=== PATIENT | male | born 1990 | race Caucasian/White ===

== ENCOUNTER 2016-10-29 22:11 | Emergency (ER) | payer SELFPAY ==
[2016-10-29] MEDS ORDERED: PREDNISONE 20 MG TAB PO ONE ×2 (22:30→22:44)
[2016-10-29] MEDS ORDERED: AZITHROMYCIN 500 MG TABLET PO ONE (22:30)
--- NOTE | 2016-10-29 22:33 | Emergency Department Record ---
History of Present Illness - General Chief Complaint: Cough Stated Complaint: COUGHING WITH PAIN Time Seen by Provider: 10/29/16 22:16 Source: Patient Mode of Arrival: Ambulatory Limitations: No limitations - History of Present Illness Initial Comments: 26 yo male presents to ED with a 4-5 day history of non-productive cough symptoms. Patient denies fevers or chills, reports asthma as a child but is now only exercised induced. Patient was seen in Urgent Care earlier in the week and told that his symptoms were viral, no prescriptions were given at that time. MD Complaint: Cough Onset/Timin -: Days(s) Severity: Moderate Severity scale (1-10): 5 Consistency: Constant Improves With: Nothing Worsens With: Deep breaths Associated Symptoms: Denies other symptoms - Related Data Home Medications Medication Instructions Recorded Confirmed Last Taken Levothyroxine Sodium [Synthroid] 50 mcg PO DAILY 10/29/16 10/29/16 Unknown Prednisone [Prednisone 10Mg] 10 mg PO BID 10/29/16 10/29/16 Unknown Previous Rx's Medication Instructions Recorded Azithromycin [Zithromax] 250 mg PO DAILY #4 tab 10/29/16 Prednisone [Prednisone 20Mg] 20 mg PO TID #12 tab 10/29/16 Allergies Allergy/AdvReac Type Severity Reaction Status Date / Time Sulfa (Sulfonamide Allergy HIVES Verified 10/29/16 22:22 Antibiotics) Travel Screening - Travel/Exposure Within Last 30 Days Have you traveled within the last 30 days?: No Review of Systems Constitutional: Denies: Chills, Fever, Malaise, Night sweats Eyes: Denies: Eye discharge, Eye pain ENT: Denies: Congestion, Ear pain, Epistaxis Respiratory: Reports: Cough. Denies: Dyspnea Cardiovascular: Denies: Chest pain, Dyspnea on exertion Endocrine: Denies: Fatigue, Heat or cold intolerance Gastrointestinal: Denies: Abdominal pain, Nausea, Vomiting Genitourinary: Denies: Incontinence, Retention Musculoskeletal: Denies: Arthralgia, Back pain, Gout, Joint swelling Skin: Denies: Bruising, Change in color, Change in hair/nails Neurological: Denies: Abnormal gait, Confusion, Headache, Seizure Psychiatric: Denies: Anxiety, Auditory hallucinations Hematological/Lymphatic: Denies: Anemia, Blood Clots Past Medical History - SOCIAL HISTORY Smoking Status: Never smoker Alcohol Use: None Drug Use: None - RESPIRATORY Hx Respiratory Disorders: Yes Hx Asthma: Yes (hx) - CARDIOVASCULAR Hx Cardio Disorders: No - NEURO Hx Neuro Disorders: No - GI Hx GI Disorders: Yes Hx Diverticulitis: Yes (hx) Comment:: colitis - Hx Genitourinary Disorders: No - ENDOCRINE Hx Endocrine Disorders: Yes Hx Thyroid Disease: Yes (hypo) - MUSCULOSKELETAL Hx Musculoskeletal Disorders: No - PSYCH Hx Psych Problems: No - HEMATOLOGY/ONCOLOGY Hx Hematology/Oncology Disorders: No Family Medical History Any Significant Family History?: No Physical Exam - General General Appearance: Alert, Oriented x3, Cooperative, No acute distress Limitations: No limitations - Head Head exam: Atraumatic, Normocephalic, Normal inspection Head exam detail: negative: Abrasion, Contusion, Quintana's sign, General tenderness, Hematoma, Laceration - Eye Eye exam: Normal appearance. negative: Conjunctival injection, Periorbital swelling, Periorbital tenderness, Scleral icterus - ENT Ear exam: negative: Auricular hematoma, Auricular trauma Nasal Exam: negative: Active bleeding, Discharge, Dried blood, Foreign body Mouth exam: negative: Drooling, Laceration, Muffled voice, Tongue elevation - Neck Neck exam: Normal inspection. negative: Meningismus, Tenderness - Respiratory Respiratory exam: Normal lung sounds bilaterally. negative: Rales, Respiratory distress, Rhonchi, Stridor, Wheezes - Cardiovascular Cardiovascular Exam: Regular rate, Normal rhythm, Normal heart sounds - GI/Abdominal GI/Abdominal exam: Soft. negative: Rebound, Rigid, Tenderness - Rectal Rectal exam: Deferred - exam: Deferred - Extremities Extremities exam: Normal inspection. negative: Calf tenderness, Pedal edema, Tenderness - Back Back exam: Denies: CVA tenderness (R), CVA tenderness (L) - Neurological Neurological exam: Alert, Normal gait, Oriented X3 - Psychiatric Psychiatric exam: Normal affect, Normal mood - Skin Skin exam: Normal color. negative: Abrasion Type of lesion: negative: abrasion Course Vital Signs 10/29/16 22:19 Temperature 98.5 F Pulse Rate [ 83 Pulse Ox Probe] Respiratory 18 Rate Blood Pressure 157/96 [Left Arm] Pulse Ox 98 - Reevaluation(s) Reevaluation #1: 10/29/16 22:36 Patient is resting comfortably with normal vitals and clear lungs sounds, will prescribe Zithromax and Prednisone for his symptoms. Given normal lungs sound son examination, CXR is not felt to be of benefit at this time. Patient appears stable for discharge at this time. Disposition Disposition: Discharge Clinical Impression: Bronchitis Disposition: Home, Self-Care Condition: (2) Stable Instructions: Acute Bronchitis (ED) Additional Instructions: Return to ED if your symptoms worsen or if you have any concerns. Zithromax and Prednisone as directed. Follow-up with your family doctor in 3-5 days as directed. Prescriptions: Prednisone [Prednisone 20Mg] 20 mg PO TID #12 tab Azithromycin [Zithromax] 250 mg PO DAILY #4 tab Forms: Patient Portal Access Time of Disposition: 22:33
== END 2016-10-29 22:50 | disposition home or self-care (01) ==
LOC: ER 22:11
DX: J20.9 Acute bronchitis, unspecified (principal)
CPT/HCPCS: 99282; J7512

== ENCOUNTER 2017-06-10 13:17 | Day surgery (SDC) | payer MEDICAID ==
[2017-06-10] MEDS ORDERED: LIDOCAINE 2% MDV (20MG/ML) 20ML VIAL IV ONE (13:18)
[2017-06-10] MEDS ORDERED: FENTANYL PF 100MCG/2ML VIAL IV ONE (13:18)
--- NOTE | 2017-06-11 07:59 | ULTRASOUND REPORT ---
EXAM: ULTRASOUND OF THE ABDOMEN HISTORY: ELEVATED LFT'S. TECHNIQUE: Complete transabdominal ultrasound of the abdomen was obtained. Comparison: CT from 04/08/17. FINDINGS: The liver is homogeneous in echotexture without focal lesion. No gallstones or gallbladder wall thickening. The CBD measures 2.5 mm. The visualized pancreas is unremarkable. The spleen is enlarged at 14.6 cm. The right kidney measures 10 x 6 cm and the left kidney measures 10 x 5 cm. No renal calculus, mass, or hydronephrosis. The visualized abdominal aorta and inferior vena cava are unremarkable. No free fluid. IMPRESSION: THE SPLEEN IS ENLARGED AT 14 CM. OTHERWISE, UNREMARKABLE EXAMINATION. JOB NUMBER: [id number] MTDD
--- NOTE | 2017-06-11 12:40 | Operative Note ---
DATE OF SURGERY: 06/10/2017 REFERRING PROVIDER: BETY Pearson PREOPERATIVE DIAGNOSIS: Colitis. POSTOPERATIVE DIAGNOSIS: Includes pancolitis, suspect ulcerative colitis. Rule out occult C difficile colitis. OPERATION: COLONOSCOPY with right and left colon biopsies and photos, and stool aspirate. PROCEDURE: After informed consent was obtained, the patient was placed in the left lateral decubitus position in the endoscopy suite, sedated and monitored by the Department of Anesthesia. Digital rectal exam was unremarkable. A well-lubricated CF-160AL colonoscope was inserted into the rectum and advanced to the cecum and then into the terminal ilium. There were granular changes of moderate severity throughout the length of the colon. There was noted to be a normal-appearing distal terminal ilium. The preparation quality was good. Random biopsies were obtained from the right and left colon. No polyps or pseudopolyps were seen. J-turn views in the rectum were not performed given the inflammation and concern over trauma. Again, random biopsies were obtained from right and left colon. Also, stool was aspirated to rule out the possibility of occult C difficile infection, particularly given the history. RECOMMENDATIONS: Will await results of stool aspirate and biopsies, but at this point believe the patient will need to be on a biologic. Will continue to take steps to obtain authorization to start Remicade. In addition, will check an abdominal ultrasound given his elevated liver chemistries. At this point, I suspect they may be fatty liver induced, which is certainly exacerbated by his chronic use of prednisone. As always, thank you for allowing me to participate in the health care of your patients. CC: BETY Pearson
== END 2017-06-10 15:15 | disposition home or self-care (01) ==
LOC: HOP 13:17
PROVIDERS: ATTEND Internal Medicine Gastroenterology
DX: K52.9 Noninfective gastroenteritis and colitis, unspecified (principal); K51.90 Ulcerative colitis, unspecified, without complications; K51.00 Ulcerative (chronic) pancolitis without complications; B96.7 Clostridium perfringens [C. perfringens] as the cause of diseases classified elsewhere; R94.5 Abnormal results of liver function studies
CPT/HCPCS: 45380; 00810; 76700; J3010

== ENCOUNTER 2017-11-05 02:41 | Emergency (ER) | payer MEDICAID ==
[2017-11-05] MEDS ORDERED: LIDOCAINE 5% PATCH TOP ONE (02:59)
--- NOTE | 2017-11-05 03:05 | Emergency Department Record ---
History of Present Illness - General Chief complaint: Pain Stated complaint: RIB PAIN Time Seen by Provider: 11/05/17 02:59 Source: Patient Mode of Arrival: Ambulatory Limitations: No limitations - History of Present Illness Initial comments: 27 yo male presents to ED for evaluation of right rib pain. Patient reports that he coughed approximately 2 hours ago, reports feeling a "pop" and right sided rib pain. Patient denies taking anything for pain prior to arrival, denies health problems at his baseline. MD Complaint: Other (chest wall pain) Onset/Timin -: Hour(s) Location: Right History of Same: No Quality: Aching Consistency: Constant Improves with: Nothing Worsens with: Nothing Associated Symptoms: Denies other symptoms - Related Data Home Medications Medication Instructions Recorded Confirmed Last Taken Fidaxomicin [Dificid] 200 mg PO BID 11/05/17 11/05/17 11/04/17 Prednisone [Prednisone 5Mg] 5 mg PO TID 11/05/17 11/05/17 Unknown Previous Rx's Medication Instructions Recorded Lidocaine Patch [Lidoderm] 1 each TOP Q12HR PRN #15 patch 11/05/17 Allergies Allergy/AdvReac Type Severity Reaction Status Date / Time Sulfa (Sulfonamide Allergy HIVES Verified 11/05/17 03:14 Antibiotics) Travel Screening - Travel/Exposure Within Last 30 Days Have you traveled within the last 30 days?: No - Travel Symptoms Symptom Screening: None Review of Systems Constitutional: Denies: Chills, Fever, Malaise, Night sweats Eyes: Denies: Eye discharge, Eye pain ENT: Denies: Congestion, Ear pain, Epistaxis Respiratory: Denies: Cough, Dyspnea Cardiovascular: Reports: Chest pain. Denies: Dyspnea on exertion, Edema, Palpitations Endocrine: Denies: Fatigue, Heat or cold intolerance Gastrointestinal: Denies: Abdominal pain, Nausea, Vomiting Genitourinary: Denies: Incontinence, Retention Musculoskeletal: Denies: Arthralgia, Back pain, Gout, Joint swelling Skin: Denies: Bruising, Change in color Neurological: Denies: Abnormal gait, Confusion, Headache, Seizure Psychiatric: Denies: Anxiety Hematological/Lymphatic: Denies: Anemia, Blood Clots Past Medical History - SOCIAL HISTORY Smoking Status: Never smoker Alcohol Use: None Drug Use: None - RESPIRATORY Hx Respiratory Disorders: Yes Hx Asthma: Yes (exercise induced) - CARDIOVASCULAR Hx Cardio Disorders: No - NEURO Hx Neuro Disorders: No - GI Hx GI Disorders: Yes Hx Abdominal Pain: Yes (intermittent) Hx Diverticulitis: Yes (hx) Hx of Polyps: Yes Comment:: ulcerative colitis - Hx Genitourinary Disorders: Yes Hx Kidney Stones: Yes - ENDOCRINE Hx Endocrine Disorders: Yes Hx Thyroid Disease: Yes (hypo) - MUSCULOSKELETAL Hx Musculoskeletal Disorders: No - PSYCH Hx Psych Problems: No - HEMATOLOGY/ONCOLOGY Hx Hematology/Oncology Disorders: Yes Hx Anemia: Yes Hx Blood Transfusions: Yes Hx Blood Transfusion Reaction: No Family Medical History Any Significant Family History?: Yes Hx Cancer: Grandparents *Cancer Comment: MGF-lung Hx Diabetes: Grandparents *Diabetes Comment: MGM, PGF Hx Heart Disease: Grandparents *Heart Comment: MGM Physical Exam - General General Appearance: Alert, Oriented x3, Cooperative, Mild distress Limitations: No limitations - Head Head exam: Atraumatic, Normocephalic, Normal inspection Head exam detail: negative: Abrasion, Contusion, Quintana's sign, General tenderness, Hematoma, Laceration - Eye Eye exam: Normal appearance. negative: Conjunctival injection, Periorbital swelling, Periorbital tenderness, Scleral icterus - ENT Ear exam: negative: Auricular hematoma, Auricular trauma Nasal Exam: negative: Active bleeding, Discharge, Dried blood, Foreign body Mouth exam: negative: Drooling, Laceration, Muffled voice, Tongue elevation - Neck Neck exam: Normal inspection. negative: Meningismus, Tenderness - Respiratory Respiratory exam: Normal lung sounds bilaterally, Chest wall tenderness (Right lower ribs). negative: Rales, Respiratory distress, Rhonchi - Cardiovascular Cardiovascular Exam: Regular rate, Normal rhythm, Normal heart sounds - GI/Abdominal GI/Abdominal exam: Soft. negative: Rebound, Rigid, Tenderness - Rectal Rectal exam: Deferred - exam: Deferred - Extremities Extremities exam: Normal inspection. negative: Calf tenderness, Pedal edema, Tenderness - Back Back exam: Denies: CVA tenderness (R), CVA tenderness (L) - Neurological Neurological exam: Alert, Normal gait, Oriented X3 - Psychiatric Psychiatric exam: Normal affect, Normal mood - Skin Skin exam: Normal color. negative: Abrasion Type of lesion: negative: abrasion Course Vital Signs 11/05/17 02:47 Temperature 98.3 F Pulse Rate [ 95 H Pulse Ox Probe] Respiratory 24 Rate Blood Pressure 147/102 [Left Arm] Pulse Ox 98 - Reevaluation(s) Reevaluation #1: 11/05/17 03:18 CXR: No acute process Patient and his family were updated on his xray results, appears stable for discharge with continued symptomatic care of his chest wall strain. Disposition Disposition: Discharge Clinical Impression: Chest wall pain Disposition: Home, Self-Care Condition: (2) Stable Instructions: Chest Pain (ED) Additional Instructions: Return to ED if your symptoms worsen or if you have any concerns. Lidoderm patches as directed. Follow-up with your family doctor in 3-5 days as directed. Prescriptions: Lidocaine Patch [Lidoderm] 1 each TOP Q12HR PRN #15 patch PRN Reason: Pain - Moderate (5-7) Forms: Patient Portal Access Time of Disposition: 03:19 Quality - Quality Measures Quality Measures: N/A - Blood Pressure Screening Does Patient Have Any of the Following: No Blood Pressure Classification: Hypertensive Reading Systolic Measurement: 147 Diastolic Measurement: 102 Screening for High Blood Pressure: < First Hypertensive BP, F/U Documented > [ G8950] First Hypertensive Follow-up Interventions: Referral to alternative/primary care provider.
--- NOTE | 2017-11-05 10:52 | RADIOLOGY REPORT ---
EXAM: CHEST, TWO VIEWS HISTORY: DIFFICULTY IN BREATHING. TECHNIQUE: Frontal and lateral views of the chest were performed. FINDINGS: The heart size is normal. The lung escamilla are clear. The osseous structures are normal. IMPRESSION: NEGATIVE CHEST EXAMINATION. JOB NUMBER: [id number] MTDD
== END 2017-11-05 03:24 | disposition home or self-care (01) ==
LOC: ER 02:41
DX: R07.89 Other chest pain (principal); R06.00 Dyspnea, unspecified
CPT/HCPCS: 71046; 99283

== ENCOUNTER 2018-05-10 18:27 | Observation (INO) | payer MEDICAID ==
[2018-05-10] MEDS ORDERED: ONDANSETRON HCL IV 4 MG/2 ML VIAL IVP ONE (18:37)
[2018-05-10] MEDS ORDERED: HYOSCYAMINE SULFATE ODT 0.125 MG TAB.SUBL SL ONE (18:37)
--- NOTE | 2018-05-10 18:41 | Emergency Department Record ---
History of Present Illness - General Chief complaint: Nausea, Vomiting, Diarrhea Stated complaint: VOMITING,DIARRHEA Time Seen by Provider: 05/10/18 18:37 Source: Patient Mode of Arrival: Ambulatory Limitations: No limitations - History of Present Illness Initial comments: 28 yo male presents to ED for evaluation of nausea, vomiting, and loose stools for the past 48 hours. Patient reports similar symptoms previously related to C. Diff in 2014 as well as a history of ulcerative colitis. Patient is s/p fecal transplant for recurrent c. diff as well. Patient denies abdominal pain symptoms but does report "cramping". Patient denies previous abdominal surgery. MD complaint: Diarrhea, Nausea, Vomiting Onset/Timin -: Days(s) Associated Abdominal Pain: No Severity: Moderate Quality: Cramping Consistency: Constant Improves with: None Worsens with: None Associated Symptoms: Fever/chills, Nausea/vomiting, Weakness - Related Data Allergies Allergy/AdvReac Type Severity Reaction Status Date / Time Sulfa (Sulfonamide Allergy HIVES Verified 05/10/18 18:38 Antibiotics) Travel Screening - Travel/Exposure Within Last 30 Days Have you traveled within the last 30 days?: No Review of Systems Constitutional: Reports: Fever. Denies: Chills, Malaise, Night sweats Eyes: Denies: Eye discharge, Eye pain ENT: Denies: Congestion, Ear pain, Epistaxis Respiratory: Denies: Cough, Dyspnea Cardiovascular: Denies: Chest pain, Dyspnea on exertion Endocrine: Reports: Fatigue. Denies: Heat or cold intolerance Gastrointestinal: Reports: Diarrhea, Nausea, Vomiting. Denies: Abdominal pain Genitourinary: Denies: Incontinence, Retention Musculoskeletal: Denies: Arthralgia, Back pain, Gout, Joint swelling Skin: Denies: Bruising, Change in color, Change in hair/nails Neurological: Denies: Abnormal gait, Confusion, Headache, Seizure Psychiatric: Denies: Anxiety Hematological/Lymphatic: Denies: Anemia, Blood Clots Past Medical History - SOCIAL HISTORY Smoking Status: Never smoker Drug Use: None - RESPIRATORY Hx Respiratory Disorders: Yes Hx Asthma: Yes (exercise induced) - CARDIOVASCULAR Hx Cardio Disorders: No - NEURO Hx Neuro Disorders: No - GI Hx GI Disorders: Yes Hx Abdominal Pain: Yes (intermittent) Hx Diverticulitis: Yes (hx) Hx of Polyps: Yes Comment:: ulcerative colitis - Hx Genitourinary Disorders: Yes Hx Kidney Stones: Yes - ENDOCRINE Hx Endocrine Disorders: Yes Hx Thyroid Disease: Yes (hypo) - MUSCULOSKELETAL Hx Musculoskeletal Disorders: No - PSYCH Hx Psych Problems: No - HEMATOLOGY/ONCOLOGY Hx Hematology/Oncology Disorders: Yes Hx Anemia: Yes Hx Blood Transfusions: Yes Hx Blood Transfusion Reaction: No Family Medical History Hx Cancer: Grandparents *Cancer Comment: MGF-lung Hx Diabetes: Grandparents *Diabetes Comment: MGM, PGF Hx Heart Disease: Grandparents *Heart Comment: MGM Physical Exam - General General Appearance: Alert, Oriented x3, Cooperative, Mild distress Limitations: No limitations - Head Head exam: Atraumatic, Normocephalic, Normal inspection Head exam detail: negative: Abrasion, Contusion, Quintana's sign, General tenderness, Hematoma, Laceration - Eye Eye exam: Normal appearance. negative: Conjunctival injection, Periorbital swelling, Periorbital tenderness, Scleral icterus - ENT Ear exam: negative: Auricular hematoma, Auricular trauma Nasal Exam: negative: Active bleeding, Discharge, Dried blood, Foreign body Mouth exam: negative: Drooling, Laceration, Muffled voice, Tongue elevation - Neck Neck exam: Normal inspection. negative: Meningismus, Tenderness - Respiratory Respiratory exam: Normal lung sounds bilaterally. negative: Rales, Respiratory distress, Rhonchi, Stridor - Cardiovascular Cardiovascular Exam: Regular rate, Normal rhythm, Normal heart sounds - GI/Abdominal GI/Abdominal exam: Soft, Tenderness (Mild, diffuse pain on examination.). negative: Rebound, Rigid - Rectal Rectal exam: Deferred - exam: Deferred - Extremities Extremities exam: Normal inspection. negative: Calf tenderness, Pedal edema, Tenderness - Back Back exam: Denies: CVA tenderness (R), CVA tenderness (L) - Neurological Neurological exam: Alert, Normal gait, Oriented X3 - Psychiatric Psychiatric exam: Normal affect, Normal mood - Skin Skin exam: Normal color. negative: Abrasion Type of lesion: negative: abrasion Course - Reevaluation(s) Reevaluation #1: 05/10/18 19:11 Laboratory studies were reviewed and are grossly unremarkable for an acute process except for: WBC 10.9 AST 157 ALT 202 Alk phos 189 BUN 11/Creatinine 2.0 CO2 20 AG 22. Reevaluation #2: 05/10/18 19:20 CT imaging ordered to exclude colitis, 2nd L NS ordered to infuse as well. Reevaluation #3: 05/10/18 20:23 CT Abdomen/Pelvis: No definite acute intra-abdominal process Fatty infiltration of the colon marcum unchanged from 2017 imaging Mild splenomegaly Healing right 10th rib fracture Patient was updated on results thus far, C. Diff toxin pending. Reevaluation #4: 05/10/18 21:01 EKG: Sinus tachycardia 134 Normal axis, normal intervals Minor ST-changes I 2nd Liter has completed infusion however heart rate continues to be 130's. Will admit for ARF and likely resulting tachycardia with continued IVF resuscitation. Reevaluation #5: 05/10/18 21:08 Message left for Lissette Kumar NP for admission. 05/10/18 21:40 Case was discussed with Lissette Marques, will accept admission at this time. Medical Decision Making - Lab Data Result diagrams: 05/10/18 18:45 05/10/18 18:45 Disposition Disposition: Admit Clinical Impression: Nausea vomiting and diarrhea, Tachycardia ARF (acute renal failure) Qualifiers: Acute renal failure type: unspecified Qualified Code(s): N17.9 - Acute kidney failure, unspecified Disposition: Still a Patient at [facility] Decision to Admit: Admit from ER Decision to Admit Date: 05/10/18 Decision to Admit Time: 21:03 Condition: (2) Stable Forms: Patient Portal Access Time of Disposition: 21:03 Quality - Quality Measures Quality Measures: N/A - Blood Pressure Screening Does Patient Have Any of the Following: No Blood Pressure Classification: Hypertensive Reading Systolic Measurement: 117 Diastolic Measurement: 91 Screening for High Blood Pressure: < First Hypertensive BP, F/U Documented > [ G8950] First Hypertensive Follow-up Interventions: Referral to alternative/primary care provider.
[2018-05-10] MEDS ORDERED: 0.9 % SODIUM CHLORIDE 1000ML 1,000 ML IV SCH ×2 (18:45→19:30)
[2018-05-10 18:54] LABS: BASO % 0.5 % (0-6); EOS % 0.3 % (0-6); GRAN % 67.8 % (47-80); HEMATOCRIT 52.6 % (42.0-52.0); HEMOGLOBIN 17.1 gm/dl (14.0-18.0); LYMPH % 17.7 % (16-45); MEAN CELL VOLUME 75.1 fl (81-97); MEAN CORPUSCULAR HEMOGLOBIN 24.4 pg (27-33); MEAN CORPUSCULAR HGB CONC 32.5 g/dl (32-36); MONO % 13.7 % (0-9); PLATELET COUNT 464 K/uL (130-400); RED CELL DISTRIBUTION WIDTH 17.4 % (11.5-14.5); WHITE BLOOD COUNT W/O DIFF 10.9 K/uL (4.2-12.2)
[2018-05-10] MEDS ORDERED: METOCLOPRAMIDE HCL 10 MG/2 ML VIAL IVP ONE (18:58)
[2018-05-10] MEDS ORDERED: DIPHENHYDRAMINE HCL 50 MG/ML VIAL IVP ONE (18:58)
[2018-05-10 19:03] LABS: BILIRUBIN,TOTAL 0.6 mg/dL (0.2-1.0)
[2018-05-10 19:08] LABS: ALB/GLOB RATIO 1.3 (1.1-1.8); ALBUMIN 5.1 g/dL (4.0-5.0)
[2018-05-10] MEDS: 0.9 % SODIUM CHLORIDE 1000ML 1,000 ML IV PRN (21:20)
[2018-05-10] MEDS ORDERED: PREDNISONE 5 MG TAB PO SCH (22:09)
[2018-05-10] MEDS ORDERED: ONDANSETRON HCL IV 4 MG/2 ML VIAL IVP PRN (22:09)
[2018-05-10] MEDS ORDERED: 0.9 % SODIUM CHLORIDE 1000ML 1,000 ML IV PRN (22:09)
[2018-05-10] MEDS: ACETAMINOPHEN 500 MG TABLET PO PRN (22:41)
[2018-05-10] MEDS: PREDNISONE 1 MG TABLET PO SCH (22:42)
[2018-05-10] MEDS: HYOSCYAMINE SULFATE ODT 0.125 MG TAB.SUBL SL PRN (23:56)
[2018-05-11] MEDS: ACETAMINOPHEN 500 MG TABLET PO PRN ×2 (04:07→11:58)
[2018-05-11] MEDS: 0.9 % SODIUM CHLORIDE 1000ML 1,000 ML IV PRN (05:20)
[2018-05-11 05:40] LABS: URINE APPEARANCE CLEAR; URINE BILIRUBIN SMALL (NEGATIVE); URINE BLOOD NEGATIVE (NEGATIVE); URINE COLOR YELLOW; URINE GLUCOSE (UA) NEGATIVE (NEGATIVE); URINE KETONE TRACE (NEGATIVE); URINE LEUKOCYTE ESTERASE NEGATIVE (NEGATIVE); URINE NITRITE NEGATIVE (NEGATIVE); URINE PROTEIN TRACE (NEGATIVE); URINE UROBILINOGEN 0.2 E.U./dL (0.20 - 1.00)
[2018-05-11 05:55] LABS: URINE BACTERIA FEW; URINE EPITHELIAL CELLS NONE SEEN (FEW); URINE HYALINE CAST 0 - 5 /lpf; URINE MUCUS MODERATE; URINE RBC 0 - 2 (NONE SEEN)
[2018-05-11] MEDS ORDERED: LEVOTHYROXINE SODIUM 50 MCG TABLET PO SCH (07:00)
[2018-05-11] MEDS: PREDNISONE 1 MG TABLET PO SCH (09:34)
[2018-05-11] MEDS: HYOSCYAMINE SULFATE ODT 0.125 MG TAB.SUBL SL PRN (09:34)
--- NOTE | 2018-05-11 09:38 | History & Physical ---
History of Present Illness - Date of Service Date of Service for History & Physical: 05/11/18 - History of Present Illness Admitting Diagnosis: Dehydration. ARF. Nause/vomiting/diarrhea. Tachycardia History of Present Illness: HPI: Patient is a 28 y/o male with history of ulcerative colitis who was admitted from the ED following 48 hour history of nausea, vomiting and loose stools. 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 Patient denies travel or sick contacts and has received his influenza vaccination. Patient has been unable to eat solid food since onset of nausea and vomiting, but is able to hold down liquids. ED Course: Patient presented to the ED 05/10/18. ED course was as follows: Initial laboratory studies were reviewed in ED and unremarkable for an acute process except for: WBC 10.9 AST 157 ALT 202 Alk phos 189 BUN 11/Creatinine 2.0 CO2 [address] imaging ordered to exclude colitis. Non-contrast CT Abdomen/Pelvis showed: No definite acute intra-abdominal process Fatty infiltration of the colon marcum unchanged from 2017 imaging Mild splenomegaly Healing right 10th rib fracture C. Diff toxin negative. 2 L of NS ordered to infuse . EKG: Sinus tachycardia 134 Normal axis, normal intervals Minor ST-changes I Recommended admission for ARF and likely resulting tachycardia with continued IVF resuscitation. Case was discussed with Lissette Marques NP, will accept admission at this time. PMH: Patient history significant for ulcerative colitis and infective colitis. He is followed by GI. He receives prednisone for UC and fecal transplant for infective colitis. Patient continues to experience nausea, abdominal cramping and diarrhea, but has not vomited since admission. He has been able to hold down liquids and has not eaten solids since admission. Patient continues to be tachycardic despite continuous IVF resuscitation. Travel Screening - Travel/Exposure Within Last 30 Days Have you traveled within the last 30 days?: No - Travel/Exposure Within Last Year Have you traveled outside the [place] in the last year?: No - Additonal Travel Details Have you been exposed to anyone with a communicable illness?: No - Travel Symptoms Symptom Screening: Fever (Subjective), Headache, Diarrhea, Vomiting Review of Systems Reviewed: No additional complaints except as noted below Constitutional: Reports: Fever. Denies: Chills, Malaise, Night sweats Eyes: Denies: Eye discharge, Eye pain ENT: Denies: Congestion, Ear pain, Epistaxis Respiratory: Denies: Cough, Dyspnea Cardiovascular: Denies: Chest pain, Dyspnea on exertion Endocrine: Reports: Fatigue. Denies: Heat or cold intolerance Gastrointestinal: Reports: Abdominal pain, Diarrhea, Nausea, Vomiting Genitourinary: Denies: Incontinence, Retention Musculoskeletal: Denies: Arthralgia, Back pain, Gout, Joint swelling Skin: Denies: Bruising, Change in color, Change in hair/nails Neurological: Denies: Abnormal gait, Confusion, Headache, Seizure Psychiatric: Denies: Anxiety Hematological/Lymphatic: Denies: Anemia, Blood Clots Past Medical History - SOCIAL HISTORY Smoking Status: Never smoker Alcohol Use: None Drug Use: None - RESPIRATORY Hx Respiratory Disorders: Yes Hx Asthma: Yes (exercise induced) - CARDIOVASCULAR Hx Cardio Disorders: No - NEURO Hx Neuro Disorders: No - GI Hx GI Disorders: Yes Hx Abdominal Pain: Yes (intermittent) Hx Diverticulitis: Yes (hx) Hx of Polyps: Yes Comment:: ulcerative colitis - Hx Genitourinary Disorders: Yes Hx Kidney Stones: Yes - ENDOCRINE Hx Endocrine Disorders: Yes Hx Thyroid Disease: Yes (hypo) - MUSCULOSKELETAL Hx Musculoskeletal Disorders: No - PSYCH Hx Psych Problems: No - HEMATOLOGY/ONCOLOGY Hx Hematology/Oncology Disorders: Yes Hx Anemia: Yes Hx Blood Transfusions: Yes Hx Blood Transfusion Reaction: No Family Medical History Any Significant Family History?: Yes Hx Cancer: Grandparents *Cancer Comment: MGF-lung Hx Diabetes: Grandparents *Diabetes Comment: MGM, PGF Hx Heart Disease: Grandparents *Heart Comment: MGM H&P Meds/Allergies - Allergies Allergies: Allergies Allergy/AdvReac Type Severity Reaction Status Date / Time Sulfa (Sulfonamide Allergy HIVES Verified 05/10/18 18:38 Antibiotics) - Active Medications Active Medications: Current Medications Acetaminophen (Tylenol 500mg Tab) 1,000 mg PO Q6H PRN PRN Reason: FEVER GT 101/HEADACHE Last Admin: 05/11/18 04:07 Dose: 1,000 mg Hyoscyamine (Levsin Odt) 0.25 mg SL Q4H PRN PRN Reason: ABDOMINAL PAIN Last Admin: 05/10/18 23:56 Dose: 0.25 mg Sodium Chloride () 1,000 mls @ 125 mls/hr IV .Q8H PRN PRN Reason: LARGE VOLUME IV Last Admin: 05/11/18 05:20 Dose: 125 mls/hr Levothyroxine Sodium (Synthroid) 50 mcg PO DAILYTHY [facility] Last Admin: 05/11/18 06:35 Dose: 50 mcg Ondansetron HCl (Zofran) 4 mg IVP Q6H PRN PRN Reason: NAUSEA Prednisone (Prednisone 1mg) 2 mg PO TID [facility] Last Admin: 05/10/18 22:42 Dose: 2 mg Physical Exam - Vital Signs Vital Signs: Vital Signs - Last 24 Hrs Temp Pulse Pulse Pulse Resp BP BP 05/11/18 02:00 98.4 F 98 H 05/10/18 21:45 101.3 F H 150 H 19 144/94 05/10/18 21:30 136 H 12 114/79 05/10/18 20:11 140 H 16 117/73 05/10/18 19:10 127 H 05/10/18 18:35 98.8 F 144 H 24 117/91 Pulse Ox 05/11/18 02:00 05/10/18 21:45 99 05/10/18 21:30 94 L 05/10/18 20:11 93 L 05/10/18 19:10 100 05/10/18 18:35 99 - General General Appearance: Alert, Oriented x3, Cooperative, No acute distress Limitations: No limitations - Head Head exam: Atraumatic, Normocephalic, Normal inspection Head exam detail: negative: Abrasion, Contusion, Quintana's sign, General tenderness, Hematoma, Laceration - Eye Eye exam: Normal appearance. negative: Conjunctival injection, Periorbital swelling, Periorbital tenderness, Scleral icterus - ENT ENT exam: Mucous membranes moist Ear exam: negative: Auricular hematoma, Auricular trauma Nasal Exam: negative: Active bleeding, Discharge, Dried blood, Foreign body Mouth exam: Normal external inspection. negative: Drooling, Laceration, Muffled voice, Tongue elevation - Neck Neck exam: Normal inspection. negative: Meningismus, Tenderness - Respiratory Respiratory exam: Normal lung sounds bilaterally. negative: Rales, Respiratory distress, Rhonchi, Stridor - Cardiovascular Cardiovascular Exam: Normal rhythm, Normal heart sounds, Tachycardia Peripheral Pulses: 2+: Radial (R), Radial (L), Dorsalis Pedis (R), Dorsalis Pedis (L) - GI/Abdominal GI/Abdominal exam: Soft, Hyperactive bowel sounds, Tenderness (Mild, diffuse pain on examination.). negative: Rebound, Rigid - Rectal Rectal exam: Deferred - exam: Deferred - Extremities Extremities exam: Normal inspection. negative: Calf tenderness, Pedal edema, Tenderness - Back Back exam: Denies: CVA tenderness (R), CVA tenderness (L) - Neurological Neurological exam: Alert, Normal gait, Oriented X3 - Psychiatric Psychiatric exam: Normal affect, Normal mood - Skin Skin exam: Normal color. negative: Abrasion Type of lesion: negative: abrasion Results - Labs Result Diagrams: 05/10/18 18:45 05/10/18 18:45 Labs Last 24 Hours: Laboratory Results - last 24 hr 05/10/18 05/10/18 05/10/18 18:45 18:45 19:20 WBC 10.9 RBC 7.00 H Hgb 17.1 Hct 52.6 H MCV 75.1 L MCH 24.4 L MCHC 32.5 RDW 17.4 H Plt Count 464 H MPV 11.0 H Gran % 67.8 Lymphocytes % 17.7 Monocytes % 13.7 H Eosinophils % 0.3 Basophils % 0.5 Sodium 137 Potassium 3.6 Chloride 95 L Carbon Dioxide 20.0 L Anion Gap 22.0 H BUN 11 Creatinine 2.0 H Estimated GFR 42 Random Glucose 114 H Calcium 10.0 Total Bilirubin 0.60 AST 157 H ALT 202 H Alkaline Phosphatase 189 H Total Protein 9.0 H Albumin 5.1 H Globulin 3.9 Albumin/Globulin Ratio 1.3 Lipase 32 Urine Color Urine Appearance Urine pH Ur Specific Thompson Urine Protein Urine Glucose (UA) Urine Ketones Urine Blood Urine Nitrite Urine Bilirubin Urine Urobilinogen Ur Leukocyte Esterase Urine RBC Urine WBC Ur Epithelial Cells Urine Bacteria Hyaline Casts Urine Mucus C. difficile Ag & Toxin Not detected 05/11/18 05:30 WBC RBC Hgb Hct MCV MCH MCHC RDW Plt Count MPV Gran % Lymphocytes % Monocytes % Eosinophils % Basophils % Sodium Potassium Chloride Carbon Dioxide Anion Gap BUN Creatinine Estimated GFR Random Glucose Calcium Total Bilirubin AST ALT Alkaline Phosphatase Total Protein Albumin Globulin Albumin/Globulin Ratio Lipase Urine Color Yellow Urine Appearance Clear Urine pH 6.0 Ur Specific Thompson >= 1.030 Urine Protein Trace H Urine Glucose (UA) Negative Urine Ketones Trace H Urine Blood Negative Urine Nitrite Negative Urine Bilirubin Small H Urine Urobilinogen 0.2 Ur Leukocyte Esterase Negative Urine RBC 0 - 2 Urine WBC 6 - 10 Ur Epithelial Cells None seen Urine Bacteria Few Hyaline Casts 0 - 5 Urine Mucus Moderate C. difficile Ag & Toxin VTE H&P Assessment - Risk for VTE Risk for VTE: No Risk Level: Low Risk Assessment Date: 05/11/18 Risk Assessment Time: 10:36 VTE Orders Placed or Will Be Placed: No VTE Reason for No Prophylaxis: Not Indicated (Patient ambulating frequently in room) Plan - Detailed Diagnosis and Plan (1) Nausea vomiting and diarrhea Current Visit: Yes Status: Acute Base Code: R11.2 - NAUSEA WITH VOMITING, UNSPECIFIED; R19.7 - DIARRHEA, UNSPECIFIED Comment: 05/11/18 Patient admitted for 48 hours nausea, vomiting and diarrhea -NS at 125 per hr -clear liquid diet -Zofran PRN -C. Diff cultures neg -Immodium PRN for diarrhea (2) Acute kidney injury Current Visit: Yes Status: Acute Base Code: N17.9 - ACUTE KIDNEY FAILURE, UNSPECIFIED Comment: 05/11/18 BUN 11, Cr 2, GFR 42 upon admission -likely secondary to dehydration -continue with IV hydration -advance diet as tolerated -repeat BMP pending (3) Tachycardia Current Visit: Yes Status: Acute Base Code: R00.0 - TACHYCARDIA, UNSPECIFIED Comment: 05/11/18 Patient has been tachycardic with heart rate of 120-130 since admission -rehydrated with 2 L NS bolus in ED -continue IV hydration -chronic tachycardia present in previous medical records -cardiology consult pending -continuous cardiac monitoring (4) Ulcerative colitis Current Visit: Yes Status: Acute Base Code: K51.90 - ULCERATIVE COLITIS, UNSPECIFIED, WITHOUT COMPLICATIONS Comment: 05/11/18 Patient has extensive UC history followed by Dr. Olmedo -Prednisone daily -Infliximab infusion once weekly -patient has chronic diarrhea with 4-6 bowel movements daily on current treatment regimen (5) DVT prophylaxis Current Visit: Yes Status: Acute Base Code: [id number] - Comment: 05/11/18 Patient is low risk due to age and frequent mobility in room -encourage frequent ambulation (6) Full code status Current Visit: Yes Status: Acute Base Code: Z78.9 - OTHER SPECIFIED HEALTH STATUS Comment: 05/11/18 Patient is full code status this admission
[2018-05-11] MEDS ORDERED: LOPERAMIDE 2 MG CAPSULE PO PRN (10:31)
[2018-05-11 10:52] LABS: HEMATOCRIT 45.5 % (42.0-52.0); HEMOGLOBIN 14.3 gm/dl (14.0-18.0); MEAN CELL VOLUME 76.6 fl (81-97); MEAN CORPUSCULAR HGB CONC 31.4 g/dl (32-36); PLATELET COUNT 286 K/uL (130-400); RED BLOOD COUNT 5.94 M/uL (4.40-5.70); RED CELL DISTRIBUTION WIDTH 15.5 % (11.5-14.5); WHITE BLOOD COUNT W/O DIFF 6.4 K/uL (4.2-12.2)
[2018-05-11 11:25] LABS: PLATELET ESTIMATE NORMAL (NORMAL)
[2018-05-11 11:29] LABS: ALB/GLOB RATIO 1.2 (1.1-1.8); ALBUMIN 3.9 g/dL (4.0-5.0); ALKALINE PHOSPHATASE 128 U/L (40-129); ALT/SGPT 168 U/L (<41); AST/SGOT 117 U/L (10.0-50.0); BLOOD UREA NITROGEN 9 mg/dL (6-20); EST GLOMERULAR FILTRATION RATE > 60 mL/min; GLUCOSE,RANDOM 103 mg/dL (74-109); TOTAL PROTEIN 7.1 g/dL (6.6-8.7)
[2018-05-11] MEDS ORDERED: POTASSIUM CHL 20MEQ IN 1L NS 20 MEQ/1,000 ML BAG IV ONE (11:34)
--- NOTE | 2018-05-11 16:43 | Discharge Summary ---
Providers Discharge Summary Date: 05/11/18 Date of admission: 05/10/18 21:38 Expected Date of Discharge: 05/11/18 Attending physician: KACEY SHORT Primary care physician: Lissette Marques N.P. Consults: Consult Orders 05/11/18 10:30 Consult - Cardiology NOW Consulting Provider: JESSICA FARIAS Physician Instructions: Reason For Exam: chronic tachycardia Does pt have current medical staffing coordinator?: Not Established Physical Exam - Vital Signs Vital Signs: Vital Signs - Last 24 Hrs Temp Pulse Pulse Pulse Resp BP BP 05/11/18 10:35 97.8 F 155/114 05/11/18 09:15 97.8 F 115 H 18 155/114 05/11/18 09:00 20 05/11/18 02:00 98.4 F 98 H 05/10/18 21:45 101.3 F H 150 H 19 144/94 05/10/18 21:30 136 H 12 114/79 05/10/18 20:11 140 H 16 117/73 05/10/18 19:10 127 H 05/10/18 18:35 98.8 F 144 H 24 117/91 Pulse Ox 05/11/18 10:35 05/11/18 09:15 98 05/11/18 09:00 05/11/18 02:00 05/10/18 21:45 99 05/10/18 21:30 94 L 05/10/18 20:11 93 L 05/10/18 19:10 100 05/10/18 18:35 99 - General General Appearance: Alert, Oriented x3, Cooperative, No acute distress Limitations: No limitations - Head Head exam: Atraumatic, Normocephalic, Normal inspection Head exam detail: negative: Abrasion, Contusion, Quintana's sign, General tenderness, Hematoma, Laceration - Eye Eye exam: Normal appearance. negative: Conjunctival injection, Periorbital swelling, Periorbital tenderness, Scleral icterus - ENT ENT exam: Mucous membranes moist Ear exam: negative: Auricular hematoma, Auricular trauma Nasal Exam: negative: Active bleeding, Discharge, Dried blood, Foreign body Mouth exam: Normal external inspection. negative: Drooling, Laceration, Muffled voice, Tongue elevation - Neck Neck exam: Normal inspection. negative: Meningismus, Tenderness - Respiratory Respiratory exam: Normal lung sounds bilaterally. negative: Rales, Respiratory distress, Rhonchi, Stridor - Cardiovascular Cardiovascular Exam: Normal rhythm, Normal heart sounds, Tachycardia Peripheral Pulses: 2+: Radial (R), Radial (L), Dorsalis Pedis (R), Dorsalis Pedis (L) - GI/Abdominal GI/Abdominal exam: Soft, Hyperactive bowel sounds, Tenderness (Mild, diffuse pain on examination.). negative: Rebound, Rigid - Rectal Rectal exam: Deferred - exam: Deferred - Extremities Extremities exam: Normal inspection. negative: Calf tenderness, Pedal edema, Tenderness - Back Back exam: Denies: CVA tenderness (R), CVA tenderness (L) - Neurological Neurological exam: Alert, Normal gait, Oriented X3 - Psychiatric Psychiatric exam: Normal affect, Normal mood - Skin Skin exam: Normal color. negative: Abrasion Type of lesion: negative: abrasion Hospitalization - Hospitalization Admission Diagnosis: Dehydration. ARF. Nause/vomiting/diarrhea. Tachycardia - Problem List/Discharge Diagnosis (1) Nausea vomiting and diarrhea Status: Acute Base Code: R11.2 - NAUSEA WITH VOMITING, UNSPECIFIED; R19.7 - DIARRHEA, UNSPECIFIED Comment: 05/11/18: Patient admitted for 48 hours of nausea, vomiting and diarrhea. No vomiting since admission, nausea controlled with zofran, diarrhea has slowed down. -NS at 125 per hr with 20mEq K due to K of 3.0. -tolerating clear liquid diet, will continue to advance as tolerated -Zofran PRN -C. Diff cultures neg -Immodium PRN for diarrhea (2) Acute kidney injury Status: Acute Base Code: N17.9 - ACUTE KIDNEY FAILURE, UNSPECIFIED Comment: 05/11/18 BUN 11, Cr 2, GFR 42 upon admission -Resolved with BUN 9, Cr 1.0, GFR> 60 -likely secondary to dehydration -advance diet as tolerated -Good urine output (3) Tachycardia Status: Acute Base Code: R00.0 - TACHYCARDIA, UNSPECIFIED Comment: 05/11/18 Patient has been tachycardic with heart rate of 120-130 since admission -rehydrated with 2 L NS bolus in ED -continued IV hydration -chronic tachycardia present in previous medical records -cardiology consult with Dr. Farias, TSH WNL, ECHO ordered, will follow-up outpatient. No further treatment at this time -continuous cardiac monitoring (4) Ulcerative colitis Status: Acute Base Code: K51.90 - ULCERATIVE COLITIS, UNSPECIFIED, WITHOUT COMPLICATIONS Comment: 05/11/18 Patient has extensive UC history followed by Dr. Olmedo -Prednisone daily -Infliximab infusion once weekly -patient has chronic diarrhea with 4-6 bowel movements daily on current treatment regimen (5) DVT prophylaxis Status: Acute Base Code: [id number] - Comment: 05/11/18 Patient is low risk due to age and frequent mobility in room -encourage frequent ambulation -No prophylaxis needed upon discharge (6) Full code status Status: Acute Base Code: Z78.9 - OTHER SPECIFIED HEALTH STATUS Comment: Patient is full code status this admission - Hospitalization Course Disposition: Home, Self-Care Hospital Course: HPI: Patient is a 28 y/o male with history of ulcerative colitis who was admitted from the ED following 48 hour history of nausea, vomiting and loose stools. 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 Patient denies travel or sick contacts and has received his influenza vaccination. Patient has been unable to eat solid food since onset of nausea and vomiting, but is able to hold down liquids. ED Course: Patient presented to the ED 05/10/18. ED course was as follows: Initial laboratory studies were reviewed in ED and unremarkable for an acute process except for: WBC 10.9 AST 157 ALT 202 Alk phos 189 BUN 11/Creatinine 2.0 CO2 [address] imaging ordered to exclude colitis. Non-contrast CT Abdomen/Pelvis showed: No definite acute intra-abdominal process Fatty infiltration of the colon marcum unchanged from 2017 imaging Mild splenomegaly Healing right 10th rib fracture C. Diff toxin negative. 2 L of NS ordered to infuse . EKG: Sinus tachycardia 134 Normal axis, normal intervals Minor ST-changes I Recommended admission for ARF and likely resulting tachycardia with continued IVF resuscitation. Case was discussed with Lissette Marques NP, will accept admission at this time. PMH: Patient history significant for ulcerative colitis and infective colitis. He is followed by GI. He receives prednisone for UC and fecal transplant for infective colitis. Patient continues to experience nausea, abdominal cramping and diarrhea, but has not vomited since admission. He has been able to hold down liquids and has not eaten solids since admission. Patient continues to be tachycardic despite continuous IVF resuscitation. UPDATE: patient has been tolerating oral diet. Nausea well-controlled with prn zofran, diarrhea has slowed in frequency. Abdominal pain improving as well. Dr. Farias consulted, checked TSH and would like ECHO completed outpatient. No further treatment at this time. HR as been 90-130s this admission. Patient has improved and ready to dc home, YOSSI has resolved, adequate urine output. Patient to slowly advance diet as tolerated and follow-up with me in 2 weeks. Continue to follow-up with GI as scheduled for continued infusions and further UC treatment. Procedures: Imaging and X-Rays 05/10/18 19:12 ABDOMEN/PELVIS WO CONTRAST [CT] Stat Cardiology Procedures 05/10/18 20:50 EKG NOW 05/11/18 12:46 Echocardiogram 2D - Limited NOW Abnormal Labs: Abnormal Lab Results 05/10/18 05/10/18 05/11/18 Range/Units 18:45 18:45 05:30 RBC 7.00 H (4.40-5.70) M/uL Hct 52.6 H (42.0-52.0) % MCV 75.1 L (81-97) fl MCH 24.4 L (27-33) pg MCHC (32-36) g/dl RDW 17.4 H (11.5-14.5) % Plt Count 464 H (130-400) K/uL MPV 11.0 H (7.4-10.4) fl Monocytes % 13.7 H (0-9) % Monocytes (0-9) % Potassium (3.4-4.5) mmol/L Chloride 95 L (98-107) mmol/L Carbon Dioxide 20.0 L (22-29) mmol/L Anion Gap 22.0 H (7-16) Creatinine 2.0 H (0.7-1.2) mg/dL Random Glucose 114 H (74-109) mg/dL Calcium (8.6-10.0) mg/dL AST 157 H (10.0-50.0) U/L ALT 202 H (<41) U/L Alkaline Phosphatase 189 H (40-129) U/L Total Protein 9.0 H (6.6-8.7) g/dL Albumin 5.1 H (4.0-5.0) g/dL Urine Protein Trace H (NEGATIVE) Urine Ketones Trace H (NEGATIVE) Urine Bilirubin Small H (NEGATIVE) 10/31/18 10/31/18 Range/Units 10:38 10:38 RBC 5.94 H (4.40-5.70) M/uL Hct (42.0-52.0) % MCV 76.6 L (81-97) fl MCH 24.0 L (27-33) pg MCHC 31.4 L (32-36) g/dl RDW 15.5 H (11.5-14.5) % Plt Count (130-400) K/uL MPV 11.0 H (7.4-10.4) fl Monocytes % (0-9) % Monocytes 16.0 H (0-9) % Potassium 3.2 L (3.4-4.5) mmol/L Chloride (98-107) mmol/L Carbon Dioxide 20.0 L (22-29) mmol/L Anion Gap (7-16) Creatinine (0.7-1.2) mg/dL Random Glucose (74-109) mg/dL Calcium 8.5 L (8.6-10.0) mg/dL AST 117 H (10.0-50.0) U/L ALT 168 H (<41) U/L Alkaline Phosphatase (40-129) U/L Total Protein (6.6-8.7) g/dL Albumin 3.9 L (4.0-5.0) g/dL Urine Protein (NEGATIVE) Urine Ketones (NEGATIVE) Urine Bilirubin (NEGATIVE) Condition at Discharge: (2) Stable VTE Discharge VTE Reason For No Overlap Therapy: Not Indicated Discharge Medications - Discharge Medications Prescriptions: Loperamide HCl [Immodium] 2 mg PO Q4H PRN #20 capsule PRN Reason: Diarrhea Ondansetron [Zofran Odt] 4 mg PO Q8H #20 tab.rapdis Home Medications: Ambulatory Orders Prednisone [Prednisone 5Mg] 2 mg PO BID 11/05/17 [Last Taken 05/09/18] Loperamide HCl [Immodium] 2 mg PO Q4H PRN #20 capsule 05/11/18 [Last Taken Unknown] Ondansetron [Zofran Odt] 4 mg PO Q8H #20 tab.rapdis 05/11/18 [Last Taken Unknown ] Discharge Plan - Discharge Instructions Activity at Discharge: Increase Activity as Tolerated Diet at Discharge: Advance to Usual Diet Instructions: Loperamide (By mouth), Dehydration (DC), Ulcerative Colitis (DC) , Acute Nausea and Vomiting (DC), Chronic Diarrhea (DC) Additional Instructions: Follow up with Lissette in 2 weeks. 05/25 at 1240 Drink plenty of fluids. Diet as tolerated Continue home meds Loperimide(immodium) as directed for diarrhea. Zofran (odansteran) as directed for nausea. Lissette will set you up with an outpatient ECHO. Activity as tolerated Quality Measures - Quality Measures Quality Measures: Documentation of Current Medications in Medical Record, Screening for High Blood Pressure and F/U Documented - Current Medications Quality Measure: Measure #130: Documentation of Current Medications Documentation of Current Medications: <Current Medications Documented/Reviewed> [G8427] - Blood Pressure Screening Quality Measure: Screening for High Blood Pressure and Follow-Up Documented Does Patient Have Any of the Following: No Blood Pressure Classification: Hypertensive Reading Systolic Measurement: 155 Diastolic Measurement: 114 Screening for High Blood Pressure: < First Hypertensive BP, F/U Documented > [ G8950] First Hypertensive Follow-up Interventions: Referral to alternative/primary care provider. - Elder Abuse Suspicion Index EASI Reference Information: Mariann ALONZO, Dez C, Claritza D, Noemi Hsu.Development and validation of a tool to assist physicians identification of elder abuse: The Elder Abuse Suspicion Index (EASI ). Journal of Elder Abuse and Neglect, 2008; 20 (3): 276-300.
[2018-05-11] MEDS ORDERED: PREDNISONE 1 MG TABLET PO SCH (22:00)
--- NOTE | 2018-05-12 10:51 | CT SCAN REPORT ---
EXAM: NONCONTRAST CT OF THE ABDOMEN AND PELVIS HISTORY: ABDOMINAL CRAMPING WITH VOMITING AND DIARRHEA. TECHNIQUE: Noncontrast CT of the abdomen and pelvis was obtained. Comparison: CT of the abdomen and pelvis 04/08/17. FINDINGS: Minimal lower lobe atelectasis bilaterally. The lung bases are otherwise clear. Unremarkable appearance of the liver, gallbladder, adrenal glands, and pancreas. Mild splenomegaly as seen previously. No hydronephrosis or renal calculi. The appendix is normal. No focal colonic thickening or inflammatory changes. There is diffuse fatty infiltration of the colonic marcum as seen on 2017 comparison. Multiple slightly prominent mesenteric lymph nodes are similar from prior study. No free air or free fluid. The urinary bladder is only minimally distended. No dilation of the abdominal aorta. There is an incompletely healed fracture of the right tenth rib. IMPRESSION: 1. NO DEFINITE ACUTE ABDOMINAL FINDINGS. 2. DIFFUSE FATTY INFILTRATION OF THE COLONIC MARCUM SEEN ON [address] FINDING IS NONSPECIFIC, BUT COULD BE SEEN IN THE SETTING OF CHRONIC COLITIS. 3. MILD SPLENOMEGALY, SIMILAR FROM PRIOR. 4. INCOMPLETELY HEALED RIGHT TENTH RIB FRACTURE NOT PRESENT ON 2017 COMPARISON. JOB NUMBER: [id number] MTDD
--- NOTE | 2018-05-12 20:20 | Cardiology Consult ---
DATE: 05/11/2018 Mr. Huerta is 28 years old, who was seen in consultation for sinus tachycardia. He presented to [facility] on 05/10/2018 after having persistent nausea, vomiting, and diarrhea for approximately 48 hours. He has history of ulcerative colitis. He states he was first diagnosed with colitis in 2013 caused by C. difficile. He has history of hypothyroidism, on Levothyroxine. He has acute kidney injury, likely due to dehydration. He currently denies angina, palpitations, TIA, syncope. He denies any significant pain. He has no history of diabetes mellitus, hypertension, hyperlipidemia, or significant family history of coronary artery disease. PAST MEDICAL HISTORY INCLUDES: 1. Ulcerative colitis. 2. Diverticulitis. PAST SURGICAL HISTORY: None. MEDICATIONS CURRENTLY INCLUDE: Prednisone 2 mg b.i.d. Levothyroxine 50 mcg daily ALLERGIES: SULFA CAUSING HIVES. SOCIAL HISTORY: He lives in [place], currently does not work. He denies alcohol or tobacco use. FAMILY HISTORY: No significant history of coronary artery disease. Family members with diabetes. PHYSICAL EXAM: GENERAL: He is currently afebrile. VITAL SIGNS: Stable. LUNGS: Clear to auscultation. CARDIAC EXAM: Normal. ABDOMEN: Obese but no tenderness. EXTREMITIES: No edema. LABORATORY PROFILE: White count is 10.9. Hemoglobin 17.1. Platelets 464,000. Creatinine 2.0. Potassium 3.6. Sodium 137. Chloride 95. ECG demonstrated sinus tachycardia at a rate of 134 beats per minute with nonspecific ST/T changes. IMPRESSION/PLAN: Mr. Huerta has persistent sinus tachycardia. His tachycardia is likely contributed by recent dehydration and chronic use of Prednisone. Will check a TSH, since he is on Levothyroxine. Will obtain a baseline echocardiogram. If his renal function returns back to normal and he remains persistently tachycardic, will consider low-dose beta pravin therapy, such as Metoprolol Succinate 25 mg daily. Would request the patient follow-up with our office in two to three weeks after discharge to reassess how he is doing. JOB NUMBER: [id number] MTDD
== END 2018-05-11 17:20 | disposition home or self-care (01) ==
LOC: ER 18:27 → MEDSURG 21:38
PROVIDERS: ADMIT Internal Medicine; ATTEND Internal Medicine
DX: N17.9 Acute kidney failure, unspecified (principal); E86.0 Dehydration; R11.2 Nausea with vomiting, unspecified; R00.0 Tachycardia, unspecified; E03.9 Hypothyroidism, unspecified; K51.90 Ulcerative colitis, unspecified, without complications; D64.9 Anemia, unspecified; Z86.19 Personal history of other infectious and parasitic diseases; Z87.442 Personal history of urinary calculi; Z94.89 Other transplanted organ and tissue status
CPT/HCPCS: 74176; 80053; 81001; 83690; 84443; 85025; 85027; 87040; 87493; 93005; 93010; 96361; 96374; 96375; 99220; 99285; J1200; J2405; J2765; J7030; J7512

== ENCOUNTER 2018-05-19 14:57 | Emergency (ER) | payer MEDICAID ==
[2018-05-19] MEDS ORDERED: ONDANSETRON HCL IV 4 MG/2 ML VIAL IV ONE (15:16)
[2018-05-19] MEDS ORDERED: 0.9 % SODIUM CHLORIDE 1,000 ML BAG IV ONE ×2 (15:16→15:44)
--- NOTE | 2018-05-19 15:24 | Emergency Department Record ---
History of Present Illness - General Chief complaint: Nausea, Vomiting, Diarrhea Stated complaint: VOMITING AND DIARRHEA Time Seen by Provider: 05/19/18 15:01 Source: Patient Mode of Arrival: Ambulatory Limitations: No limitations - History of Present Illness Initial comments: The patient is here due to recurrent nausea, vomiting, and loose stools. The patient has a long hx of Cdiff Colitis and was admitted 9 days ago for dehydration due to the recurrent vomiting and diarrhea. He was admitted overnight and did have a neg stool for Cdiff. The patient was doing better up until 4 days ago when the vomiting and diarrhea returned. He states he is only mainly dry heaving or vomiting watery fluid but is having intermittent bloody stools. The patient reports up to 10 stools a day. There also is mild diffuse abdominal pain additionally but that also is a chronic problem. He did have a neg abdominal CT last week for this problem. MD complaint: Diarrhea, Nausea, Vomiting Onset/Timin -: Days(s) Description of Vomiting: Watery Severity: Moderate Severity scale (1-10): 8 Quality: Aching, Constant, Cramping Consistency: Constant, Intermittent - Related Data Previous Rx's Medication Instructions Recorded Loperamide HCl [Immodium] 2 mg PO Q4H PRN #20 capsule 05/11/18 Ondansetron [Zofran Odt] 4 mg PO Q8H #20 tab.rapdis 05/11/18 Allergies Allergy/AdvReac Type Severity Reaction Status Date / Time Sulfa (Sulfonamide Allergy HIVES Verified 05/19/18 15:09 Antibiotics) Travel Screening - Travel/Exposure Within Last 30 Days Have you traveled within the last 30 days?: No - Travel/Exposure Within Last Year Have you traveled outside the [place] in the last year?: No - Additonal Travel Details Have you been exposed to anyone with a communicable illness?: No - Travel Symptoms Symptom Screening: None Review of Systems Constitutional: Denies: Chills, Fever Eyes: Denies: Eye discharge ENT: Denies: Congestion Respiratory: Denies: Cough, Dyspnea Cardiovascular: Denies: Arrhythmia, Chest pain Past Medical History - SOCIAL HISTORY Smoking Status: Never smoker Alcohol Use: None Drug Use: None - RESPIRATORY Hx Respiratory Disorders: Yes Hx Asthma: Yes (exercise induced) - CARDIOVASCULAR Hx Cardio Disorders: No - NEURO Hx Neuro Disorders: No - GI Hx GI Disorders: Yes Hx Abdominal Pain: Yes (intermittent) Hx Diverticulitis: Yes (hx) Hx of Polyps: Yes Comment:: ulcerative colitis - Hx Genitourinary Disorders: Yes Hx Kidney Stones: Yes - ENDOCRINE Hx Endocrine Disorders: Yes Hx Thyroid Disease: Yes (hypo) - MUSCULOSKELETAL Hx Musculoskeletal Disorders: No - PSYCH Hx Psych Problems: No - HEMATOLOGY/ONCOLOGY Hx Hematology/Oncology Disorders: Yes Hx Anemia: Yes Hx Blood Transfusions: Yes Hx Blood Transfusion Reaction: No Family Medical History Any Significant Family History?: Yes Hx Cancer: Grandparents *Cancer Comment: MGF-lung Hx Diabetes: Grandparents *Diabetes Comment: MGM, PGF Hx Heart Disease: Grandparents *Heart Comment: MGM Physical Exam - General General Appearance: Alert, Oriented x3, Cooperative, No acute distress - Head Head exam: Atraumatic, Normocephalic, Normal inspection - Eye Eye exam: Normal appearance, PERRL, EOMI - ENT Throat exam: Normal inspection. negative: Tonsillar erythema, Tonsillar exudate - Neck Neck exam: Normal inspection, Full ROM. negative: Tenderness - Respiratory Respiratory exam: Normal lung sounds bilaterally. negative: Respiratory distress - Cardiovascular Cardiovascular Exam: Regular rate, Normal rhythm, Normal heart sounds, Tachycardia - GI/Abdominal GI/Abdominal exam: Soft, Normal bowel sounds, Tenderness (There is mild diffuse tenderness in all 4 quads.). negative: Rebound, Rigid - Extremities Extremities exam: Normal inspection, Full ROM, Normal capillary refill. negative: Tenderness - Back Back exam: Reports: Normal inspection - Neurological Neurological exam: Alert, Normal gait. negative: Abnormal gait, Motor sensory deficit - Psychiatric Psychiatric exam: negative: Anxious Course Vital Signs 05/19/18 15:05 Temperature 97.5 F L Pulse Rate 135 H Respiratory 18 Rate Blood Pressure 96/68 Pulse Ox 97 - Reevaluation(s) Reevaluation #1: The patient is doing better at this time. He denies any pain or nausea. I did discuss the significant lab abnormalities and do feel the patient needs a higher level of care than we can provide here at [facility]. The patient chose to go to [facility]. I then did discuss the case with Dr. Yañez at [facility] and he does accept the patient in transfer. 05/19/18 16:07 Reevaluation #2: The patient is feeling better at this time. He is up ambulating normally with no dizziness and with a normal BP. I again did recommend transfer by Ambulance but the patient is refusing. He understands the risks of driving to [facility] with his mother and accepts the risks. 05/19/18 17:55 Medical Decision Making - Data Complexity MDM Data: Labs Ordered and/or Reviewed - Lab Data Result diagrams: 05/19/18 15:15 05/19/18 15:15 Disposition Disposition: Transfer Clinical Impression: ARF (acute renal failure) Qualifiers: Acute renal failure type: unspecified Qualified Code(s): N17.9 - Acute kidney failure, unspecified Disposition: Acute Care Hospital Transfer Transfer To: [facility] Reason For Transfer: Renal Failure Accepting Physician: Otilio Time Discussed w/Accepting Physician: 16:08 Forms: Patient Portal Access Time of Disposition: 16:08 Quality - Quality Measures Quality Measures: N/A - Blood Pressure Screening View Details: Yes Does Patient Have Any of the Following: No Blood Pressure Classification: Normal BP Reading Systolic Measurement: 96 Diastolic Measurement: 68 Screening for High Blood Pressure: < Normal BP, F/U Not Required > [G8783]
[2018-05-19 15:30] LABS: HEMATOCRIT 50.6 % (42.0-52.0); HEMOGLOBIN 17.2 gm/dl (14.0-18.0); MEAN CELL VOLUME 70.3 fl (81-97); MEAN PLATELET VOLUME 11.3 fl (7.4-10.4); PLATELET COUNT 808 K/uL (130-400); RED CELL DISTRIBUTION WIDTH 17.3 % (11.5-14.5)
[2018-05-19] MEDS ORDERED: ACETAMINOPHEN 325 MG TAB PO ONE (15:34)
[2018-05-19 15:36] LABS: MEAN CORPUSCULAR HEMOGLOBIN 23.8 pg (27-33); WHITE BLOOD COUNT W/O DIFF 22.9 K/uL (4.2-12.2)
[2018-05-19 15:38] LABS: BLOOD UREA NITROGEN 37 mg/dL (6-20); CREATININE 3.8 mg/dL (0.7-1.2); EST GLOMERULAR FILTRATION RATE 20 mL/min
[2018-05-19 15:39] LABS: TOTAL PROTEIN 9.1 g/dL (6.6-8.7)
[2018-05-19 15:41] LABS: GLUCOSE,RANDOM 121 mg/dL (74-109)
[2018-05-19 15:43] LABS: ALBUMIN 4.5 g/dL (4.0-5.0); ALKALINE PHOSPHATASE 172 U/L (40-129); ALT/SGPT 70 U/L (<41); AST/SGOT 38 U/L (10.0-50.0); BILIRUBIN,DIRECT < 0.2 mg/dL (0-0.3)
[2018-05-19 15:44] LABS: C-REACTIVE PROTEIN 9.27 mg/dL (<0.5); LIPASE 107 U/L (13-60)
[2018-05-19 16:01] LABS: PLATELET ESTIMATE INCREASED (NORMAL)
[2018-05-19 16:46] LABS: URINE APPEARANCE CLOUDY; URINE BILIRUBIN MODERATE (NEGATIVE); URINE BLOOD TRACE-I (NEGATIVE); URINE GLUCOSE (UA) NEGATIVE (NEGATIVE); URINE KETONE TRACE (NEGATIVE); URINE LEUKOCYTE ESTERASE NEGATIVE (NEGATIVE); URINE NITRITE NEGATIVE (NEGATIVE); URINE PROTEIN TRACE (NEGATIVE); URINE UROBILINOGEN 0.2 E.U./dL (0.20 - 1.00)
[2018-05-19 16:48] LABS: URINE COLOR DARK YELLOW
[2018-05-19 16:58] LABS: URINE RBC 0 - 2 (NONE SEEN)
[2018-05-19 16:59] LABS: URINE AMORPHOUS SEDIMENT 2+; URINE BACTERIA 2+; URINE EPITHELIAL CELLS 0 - 2 (FEW); URINE MUCUS HEAVY
== END 2018-05-19 18:50 | disposition short-term general hospital (02) ==
LOC: ER 14:57
DX: N17.9 Acute kidney failure, unspecified (principal); R11.2 Nausea with vomiting, unspecified; R19.7 Diarrhea, unspecified
CPT/HCPCS: 99285 ×2; 96374; 96361; 83690; 80076; 86140; 80048; 81001; 85027; J2405; J7030

== ENCOUNTER 2019-07-18 15:22 | Emergency (ER) | payer MEDICAID ==
--- NOTE | 2019-07-18 15:41 | Emergency Department Record ---
History of Present Illness - General Chief complaint: ENT Stated complaint: RUNNY NOSE,SINUS DRAINAGE Time Seen by Provider: 07/18/19 15:38 Source: Patient Mode of Arrival: Ambulatory Limitations: No limitations - History of Present Illness Initial comments: 29 yo male presents with 5 days of congestion, cough, ear fullness, green nasal discharge. No shortness of breath. The cough has had the same green sputum. No blood. He is not a smoker. He had childhood asthma. He did have a flu shot. No nausea, vomiting or diarrhea. No rash. He has a sore throat with pain on the right more that the left. MD complaint: Other Onset/Timin -: Days(s) Location: Other Severity: Moderate Quality: Aching Consistency: Constant Improves with: None Worsens with: None Context-Epistaxis: Other Context- Ear: Recent illness Associated Symptoms: Cough, Sore throat - Related Data Allergies Allergy/AdvReac Type Severity Reaction Status Date / Time Sulfa (Sulfonamide Allergy HIVES Verified 07/18/19 15:32 Antibiotics) Travel Screening - Travel/Exposure Within Last 30 Days Have you traveled within the last 30 days?: No Review of Systems Constitutional: Denies: Chills, Fever, Weakness Eyes: Denies: Eye discharge, Eye pain ENT: Reports: Congestion, Ear pain, Throat pain. Denies: Epistaxis Respiratory: Reports: Cough. Denies: Dyspnea, Hemoptysis, Stridor, Wheezes Cardiovascular: Denies: Chest pain, Edema, Palpitations, Syncope Endocrine: Denies: Fatigue, Polydipsia, Polyuria Gastrointestinal: Reports: Nausea, Vomiting. Denies: Abdominal pain, Diarrhea, Hematemesis, Hematochezia, Melena Genitourinary: Denies: Dysuria, Frequency, Hematuria Musculoskeletal: Denies: Arthralgia, Back pain, Myalgia Skin: Denies: Bruising, Change in color, Rash Neurological: Reports: Headache. Denies: Numbness, Tremors, Vertigo, Weakness Psychiatric: Denies: Anxiety Hematological/Lymphatic: Denies: Easy bleeding, Easy bruising, Swollen glands Past Medical History - SOCIAL HISTORY Smoking Status: Never smoker Alcohol Use: None Drug Use: None - RESPIRATORY Hx Respiratory Disorders: Yes Hx Asthma: Yes (exercise induced) - CARDIOVASCULAR Hx Cardio Disorders: No - NEURO Hx Neuro Disorders: No - GI Hx GI Disorders: Yes Hx Abdominal Pain: Yes (intermittent) Hx Diverticulitis: Yes (hx) Hx of Polyps: Yes Comment:: ulcerative colitis - Hx Genitourinary Disorders: Yes Hx Kidney Stones: Yes - ENDOCRINE Hx Endocrine Disorders: Yes Hx Thyroid Disease: Yes (hypo) - MUSCULOSKELETAL Hx Musculoskeletal Disorders: No - PSYCH Hx Psych Problems: No - HEMATOLOGY/ONCOLOGY Hx Hematology/Oncology Disorders: Yes Hx Anemia: Yes Hx Blood Transfusions: Yes Hx Blood Transfusion Reaction: No Family Medical History Any Significant Family History?: Yes Hx Cancer: Grandparents *Cancer Comment: MGF-lung Hx Diabetes: Grandparents *Diabetes Comment: MGM, PGF Hx Heart Disease: Grandparents *Heart Comment: MGM Physical Exam - General General Appearance: Alert, Oriented x3, Cooperative, No acute distress Limitations: No limitations - Head Head exam: Atraumatic, Normal inspection - Eye Eye exam: Normal appearance, PERRL. negative: Conjunctival injection, Scleral icterus - ENT ENT exam: Normal exam, Mucous membranes moist, Normal orophraynx, TM's normal bilaterally. negative: Mucous membranes dry Ear exam: Normal external inspection Nasal Exam: Discharge. negative: Normal inspection, Active bleeding, Dried blood, Sinus tenderness Mouth exam: Normal external inspection Teeth exam: Normal inspection Throat exam: Tonsillar erythema. negative: Tonsillomegaly, Tonsillar exudate, R peritonsillar mass, L peritonsillar mass - Neck Neck exam: Normal inspection, Full ROM. negative: Lymphadenopathy, Meningismus, Tenderness, Thyromegaly - Respiratory Respiratory exam: Normal lung sounds bilaterally. negative: Rhonchi, Stridor, Wheezes - Cardiovascular Cardiovascular Exam: Normal rhythm, Normal heart sounds Peripheral Pulses: 2+: Radial (R), Radial (L) - GI/Abdominal GI/Abdominal exam: Soft. negative: Distended, Guarding, Rebound, Tenderness - Rectal Rectal exam: Deferred - exam: Deferred - Extremities Extremities exam: Normal inspection. negative: Pedal edema, Tenderness - Back Back exam: Denies: CVA tenderness (R), CVA tenderness (L) - Neurological Neurological exam: Alert, Normal gait, Oriented X3. negative: Abnormal gait, Altered - Psychiatric Psychiatric exam: Normal affect, Normal mood. negative: Agitated, Anxious - Skin Skin exam: Dry, Intact, Normal color, Warm. negative: Cyanosis, Diaphoretic, Erythema, Mottled Course Vital Signs 07/18/19 15:27 Temperature 97.6 F Pulse Rate 137 H Respiratory 18 Rate Blood Pressure 120/96 Pulse Ox 97 - Reevaluation(s) Reevaluation #1: 07/18/19 16:10 The swabs were negative The HR was rechecked HR still 129 The patient does not acutely appear ill, however. Labs and IVF ordered 07/18/19 16:58 CBC and BMP were reviewed Negative 07/18/19 17:58 TSH is normal The patient is doing much better after the IVF The patient has had significant C diff in the past. This is likely viral. No antibiotics indicated at this time. We discussed close follow up and reasons to return. Medical Decision Making - Lab Data Result diagrams: 07/18/19 16:20 07/18/19 16:20 Disposition Disposition: Discharge Clinical Impression: Viral URI Disposition: Home, Self-Care Condition: (1) Good Instructions: Viral Syndrome (ED) Additional Instructions: Review this ER visit and the tests performed with your family Call your doctor for the next available follow up appointment doctor Return to the ER for a recheck immediately if worse, any new concerns or questions Forms: Patient Portal Access Time of Disposition: 16:05 Quality - Quality Measures Quality Measures: N/A - Blood Pressure Screening Does Patient Have Any of the Following: No Blood Pressure Classification: Hypertensive Reading Systolic Measurement: 120 Diastolic Measurement: 96 Screening for High Blood Pressure: < Pre-Hypertensive BP, F/U Documented > [G8950] Pre-Hypertensive Follow-up Interventions: Referral to alternative/primary care provider.
[2019-07-18 15:52] LABS: STREP A SCREEN NEGATIVE (NEGATIVE)
[2019-07-18 16:02] LABS: INFLUENZA A NEGATIVE (NEGATIVE); INFLUENZA B NEGATIVE (NEGATIVE)
[2019-07-18] MEDS: 0.9 % SODIUM CHLORIDE 1,000 ML BAG IV ONE (16:23)
[2019-07-18 16:27] LABS: ABSOLUTE NEUTROPHIL COUNT 5.58; BASO % 0.4 % (0-6); EOS % 1.9 % (0-6); GRAN % 69.7 % (47-80); HEMATOCRIT 48.1 % (42.0-52.0); HEMOGLOBIN 16.6 gm/dl (14.0-18.0); LYMPH % 16.6 % (16-45); MEAN CELL VOLUME 85.9 fl (81-97); MEAN CORPUSCULAR HEMOGLOBIN 29.6 pg (27-33); MEAN CORPUSCULAR HGB CONC 34.5 g/dl (32-36); MEAN PLATELET VOLUME 10.7 fl (7.4-10.4); MONO % 11.4 % (0-9); PLATELET COUNT 285 K/uL (130-400)
[2019-07-18 16:37] LABS: BLOOD UREA NITROGEN 8 mg/dL (6-20); CREATININE 1.1 mg/dL (0.7-1.2); EST GLOMERULAR FILTRATION RATE > 60 mL/min
[2019-07-18 16:40] LABS: GLUCOSE,RANDOM 91 mg/dL (74-109)
[2019-07-18 16:53] LABS: THYROID STIMULATING HORMONE 3.46 uIU/mL (0.270-4.20)
== END 2019-07-18 18:24 | disposition home or self-care (01) ==
LOC: ER 15:22
DX: J06.9 Acute upper respiratory infection, unspecified (principal); R05 Cough; R00.0 Tachycardia, unspecified
CPT/HCPCS: 80048; 84443; 85025; 87400; 87880; 96360; 96361; 99284; J7030